=== PATIENT | male | born 1950 ===

== ENCOUNTER 2018-02-25 07:58 | Emergency (ER) | payer MEDICARE, MEDICAID ==
[2018-02-25 08:12] VITALS: TEMP 98.5
[2018-02-25] MEDS ORDERED: Sodium Chloride 0.9% 1,000 ML IV ONE (09:43)
--- NOTE | 2018-02-25 09:43 | C.PDOC ---
History Of Present Illness 67 year old male presents to the emergency department with complaints of paracervical neck pain since last night that woke him up. Patient states he carries heavy objects at work and thinks he overstrained it, and notes that pain has been getting worse. Patient denies any fall, trauma, similar pain in the past, chest pain, SOB, nausea, vomiting, or headache. Time Seen by Provider: 02/25/18 08:32 Chief Complaint (Nursing): Back Pain History Per: Patient History/Exam Limitations: no limitations Onset/Duration Of Symptoms: Days Current Symptoms Are (Timing): Still Present Past Medical History Reviewed: Historical Data, Nursing Documentation, Vital Signs Vital Signs: Last Vital Signs Temp 98.5 F 02/25/18 08:07 Pulse 94 H 02/25/18 10:23 Resp 14 02/25/18 10:23 BP 126/82 02/25/18 10:23 Pulse Ox 94 L 02/25/18 18:31 - Medical History PMH: Diabetes, HTN, Hypercholesterolemia Denies: Chronic Kidney Disease - [facility] Procedures INJECT/INFUSE NEC (12/09/14) Family History: States: No Known Family Hx - Social History Hx Tobacco Use: Yes Hx Alcohol Use: Yes Hx Substance Use: No - Immunization History Hx Tetanus Toxoid Vaccination: No Hx Influenza Vaccination: No Hx Pneumococcal Vaccination: Yes Review Of Systems Except As Marked, All Systems Reviewed And Found Negative. Constitutional: Negative for: Fever, Chills Cardiovascular: Negative for: Chest Pain Respiratory: Negative for: Shortness of Breath Gastrointestinal: Negative for: Nausea, Vomiting Musculoskeletal: Positive for: Neck Pain (paracervical) Neurological: Negative for: Headache Physical Exam - Physical Exam Appears: Well, Non-toxic, No Acute Distress Skin: Normal Color, Warm, Dry Head: Atraumatic, Normacephalic Eye(s): bilateral: Normal Inspection Ear(s): Bilateral: Normal Nose: Normal Oral Mucosa: Moist Tongue: Normal Appearing Neck: Normal ROM, No Midline Cervical Tenderness, Paracervical Tenderness, No Step Off Deformity, Supple Lymphatic: No Adenopathy Chest: Symmetrical Cardiovascular: Rhythm Regular Respiratory: Normal Breath Sounds, No Rales, No Rhonchi, No Wheezing Gastrointestinal/Abdominal: Normal Exam Back: Normal Inspection, No CVA Tenderness, No Vertebral Tenderness Extremity: Normal ROM, No Tenderness, No Deformity Extremity: Bilateral: Atraumatic, Normal Color And Temperature, Normal ROM Neurological/Psych: Oriented x3, Normal Speech, Normal Motor, Normal Sensation ED Course And Treatment ECG: Interpreted By Me, Viewed By Me ECG Rhythm: Sinus Tachycardia ECG Interpretation: Abnormal Interpretation Of ECG: Incomplete RBBB. Rate From EC O2 Sat by Pulse Oximetry: 94 (RA) Pulse Ox Interpretation: Normal Medical Decision Making Medical Decision Making: Impression: Neck Pain Plan: -EKG -Labs -IV Fluids -Toradol On re-evaluation, patient has an improved neck pain, pulse is at 94 bpm, blood glucose improved and has a steady gait. Disposition Counseled Patient/Family Regarding: Studies Performed, Diagnosis, Need For Followup, Rx Given - Disposition Referrals: Kiki Freidman MD [Medical Doctor] - Disposition: HOME/ ROUTINE Disposition Time: 11:09 Condition: STABLE Additional Instructions: FOLLOW UP WITH DR. FRIEDMAN TOMORROW FOR RE-EVALUATION. MONITOR YOUR GLUCOSE CLOSELY. TAKE ALL DIABETIC MEDICATIONS DIRECTED. IF SYMPTOMS GET WORSE OR ANY NEW CONCERNING SYMPTOMS DEVELOP RETURN TO ED. Prescriptions: Cyclobenzaprine [Cyclobenzaprine HCl] 10 mg PO HS PRN #15 tab PRN Reason: Pain, Moderate (4-7) Ibuprofen [Motrin Tab] 1 tab PO Q8H PRN #15 tab PRN Reason: Pain, Moderate (4-7) Instructions: Neck Pain, Hyperglycemia, Adult (DC) Forms: [facility] (Khmer), Gen Discharge Inst Greek Print Language: SCOTTISH - Clinical Impression Clinical Impression: Neck pain, Hyperglycemia - PA / ATTENDING PHYSICIAN / Resident Statement MD/DO has reviewed & agrees with the documentation as recorded. - Scribe Statement The provider has reviewed the documentation as recorded by the Scribcem Osborn All medical record entries made by the Florinibcem were at my direction and personally dictated by me. I have reviewed the chart and agree that the record accurately reflects my personal performance of the history, physical exam, medical decision making, and the department course for this patient. I have also personally directed, reviewed, and agree with the discharge instructions and disposition.
[2018-02-25] MEDS ORDERED: Sodium Chloride 0.9% 1,000 ML ONE (09:48)
[2018-02-25 10:24] VITALS: BP 126/82; PULSE 94; RESP 14
[2018-02-25 11:12] VITALS: O2SAT 94
--- NOTE | 2018-02-26 19:05 | CARD ---
APPROVED REPORT Date of service: 02/25/2018 EKG Measurement Heart [id number] <Conclusion> Sinus tachycardia Incomplete right bundle branch block Borderline ECG
== END 2018-02-25 11:29 | disposition home or self-care (01) ==
LOC: C.ER 07:58
DX: M54.2 Cervicalgia (principal); E11.65 Type 2 diabetes mellitus with hyperglycemia
CPT/HCPCS: 82948; 93005; 96361; 96374; 99285; J1885; J7030

== ENCOUNTER 2018-07-19 11:26 | Outpatient (CLI) | payer MEDICARE, MEDICAID | END 2018-07-19 11:27 | disposition home or self-care (01) | LOC: C.RADH 11:26 | DX: R10.9 Unspecified abdominal pain (principal) ==